=== PATIENT | male | born 1965 | race Caucasian/White ===

== ENCOUNTER 2025-01-29 08:11 | Emergency (ER) | payer MEDICAID, SELFPAY ==
[2025-01-29 08:12] VITALS: BMI 28.3
--- NOTE | 2025-01-29 08:18 | EKG_ITS ---
[facility] Test Date: 2025-01-29 Pat Name: MARK LLAMAS Department: Room: - Gender: Male [employer] Supervisor: : 1965 Requested By: Flaco Slater (BRITT) Order Number: [id number] Reading MD: Flaco Slater (BRITT) Measurements Intervals [place] Rate: 72 P: 52 MD: 170 QRS: 24 QRSD: 93 T: 53 QT: 361 QTc: 396 Interpretive Statements SINUS RHYTHM No previous ECG available for comparison /store/S0/[id number]/[id number]
--- NOTE | 2025-01-29 08:18 | XR_ITS ---
EXAMINATION: PA lateral chest 2 views TECHNIQUE: Upright PA lateral chest 2 views Date and time: January 29, 2025, 0905 hours INDICATIONS: Left-sided chest pain shortness of breath beginning 3 weeks ago. FINDINGS: Normal heart size No pneumonia or pulmonary edema Old bilateral rib fractures as well as left clavicle fracture IMPRESSION: No active disease
[2025-01-29 08:29] VITALS: BP 145/90; PULSE 75; RESP 18; TEMP 36.8; O2SAT 96
--- NOTE | 2025-01-29 08:31 | PD.EDRME ---
Rapid Medical Screening Exam RME Arrival date/time: 01/29/25 08:11 59-year-old male presents to the emergency department today for complaints of a 2-week history of chest pain Chief Complaint: Chest Pain Vital signs: Vital Signs Temperature 98.2 F 01/29/25 08:29 Pulse Rate 75 01/29/25 08:29 Respiratory Rate 18 01/29/25 08:29 Blood Pressure 145/90 H 01/29/25 08:29 Pulse Oximetry (%) 96 01/29/25 08:29 Oxygen Delivery Method Room Air 01/29/25 08:29 Vital signs reviewed by provider: Yes Exam: On exam patient hemodynamically stable does not appear ill or toxic Clinical Impression: Lab work imaging EKG ordered
[2025-01-29 08:46] LABS: Basophils # (Auto) 0.1 Thou/mm3 (0.0-0.2); Basophils % (Auto) 1 % (0-2.5); Eosinophils # (Auto) 0.2 Thou/mm3 (0.0-0.5); Eosinophils % (Auto) 2 % (0-10); Hematocrit 40.7 % (41.0-53.0); Hemoglobin 13.4 g/dL (13.5-16.0); Immature Granulocytes Auto 0.05 Thou/mm3 (0.00-0.00); Lymphocytes # (Auto) 3.6 Thou/mm3 (1.0-4.8); Lymphocytes % (Auto) 29 % (10-50); Mean Corpuscular HGB Conc 32.9 g/dl (31.0-37.0); Mean Corpuscular Hemoglobin 27.9 pg (25.0-35.0); Mean Corpuscular Volume 85 fL (80-100); Monocytes # (Auto) 0.9 Thou/mm3 (0.0-0.8); Monocytes % (Auto) 7 % (0-12); Neutrophils # (Auto) 7.4 Thou/mm3 (1.8-7.7); Neutrophils % (Auto) 60 % (37-80); Nucleated Red Blood Cell # 0.00 Thou/mm3 (0.00-0.00); Nucleated Red Blood Cell % 0 /100 WBC (0); Platelet Count 243 Thou/mm3 (140-440); RDW Standard Deviation 42.5 fL (35.1-43.9); Red Blood Count 4.81 Miln/mm3 (4.50-5.90); White Blood Count 12.2 Thou/mm3 (3.8-10.6)
[2025-01-29 08:48] LABS: Collection Type, Urine Clean Catch; Squamous Epithelial Cell,Urine 0 /hpf (0-5)
[2025-01-29 08:53] LABS: Bilirubin,Urine Negative (Negative); Blood,Urine Negative (Negative); Clarity,Urine Clear (Clear/Hazy); Color,Urine Lt-Yellow (Lt Yel-Yel); Culture Indicated,Urine Not Indicated; Glucose, Urine Negative (Negative); Ketones,Urine Negative (Negative); Leukocyte Esterase,Urine Negative (Negative); Nitrite,Urine Negative (Negative); PH,Urine 6.0 (5.0-7.0); Protein,Urine Negative (Neg - Trace); RBC,Urine 2 /hpf (0-3); Specific Gravity,Urine 1.024 (1.001-1.035); Urobilinogen,Urine Negative mg/dL (0.0-1.0); WBC,Urine 1 /hpf (0-5)
[2025-01-29 09:03] LABS: Amphetamine/Methamp Scrn,U Negative (Negative); Barbiturate Screen,Urine Negative (Negative); Benzodiazepines Screen,Urine Negative (Negative); Benzoylecgonine Screen, Ur Negative (Negative); Fentanyl Screen,Urine Negative (Negative); Opiate Screen,Urine Negative (Negative); THC Screen,Urine Negative (Negative)
[2025-01-29 09:03] LABS: INR 1.0 (0.9-1.3); Partial Thromboplastin Time 24.5 Seconds (22.0-36.0); Prothrombin Time 10.3 Seconds (9.0-12.2)
[2025-01-29 09:05] LABS: B-Type Natriuretic Peptide 70 pg/mL (0-100)
[2025-01-29 09:08] LABS: Alanine Aminotransferase 20 U/L (10-49); Albumin, Serum 4.5 gm/dL (3.5-5.0); Albumin/Globulin Ratio 1.6 (1.2-2.2); Alkaline Phosphatase 68 U/L (46-116); Anion Gap 8 (7-16); Aspartate Amino Transferase 19 U/L (0-34); BUN/Creatinine Ratio 11 Ratio (12-20); Bilirubin,Total 0.3 mg/dL (0.3-1.2); Blood Urea Nitrogen 12 mg/dL (9-23); Calcium 9.5 mg/dL (8.3-10.6); Calcium (Corrected) 9.5 mg/dL (8.5-10.1); Carbon Dioxide 25.7 mMol/L (20.0-31.0); Chloride 107 mMol/L (98-107); Creatinine (Component) 1.1 mg/dL (0.6-1.3); Estimated Creatinine Clearance 80.0 mL/min (>60); Globulin 2.8 gm/dL (2.3-3.5); Glucose 92 mg/dL (74-106); Lipase 34 U/L (12-53); Magnesium 2.0 mg/dL (1.6-2.6); Osmolality,Calculated 280 (275-295); Potassium 3.7 mMol/L (3.4-5.1); Sodium 141 mMol/L (136-145); Total Protein 7.3 gm/dL (5.7-8.2); Troponin I < 0.020 ng/mL (0.0-0.045); eGFR > 60 See Note
[2025-01-29 10:29] VITALS: BP 139/84; PULSE 81; RESP 17; TEMP 36.7; O2SAT 96
--- NOTE | 2025-01-29 12:04 | EDNOTE_ITS ---
ED Chest Pain RME/HPI General Chief Complaint: Chest Pain Stated Complaint: L-SIDED CHEST PAIN, SOB, L ABD PAIN Time Seen by Provider: 01/29/25 11:25 Arrival date/time: 01/29/25 08:11 59-year-old male patient with significant history of COPD, came in for evaluation regarding left-sided chest pain. Patient been having left- sided chest pain, associated with nonproductive cough, has been ongoing for the last 2 weeks. Pain radiates to the left upper abdomen was seen by PCP, and was started on prednisone and albuterol. Patient was worried about having a pneumonia. Denies any fever denies any other complaints no medication was taken prior to ER visit. Patient smokes cigarettes RME / HPI RME / HPI narrative: 01/29/25 08:11 59-year-old male presents to the emergency department today for complaints of a 2-week history of chest pain Exam: On exam patient hemodynamically stable does not appear ill or toxic Impression: Lab work imaging EKG ordered Related Data Previous Rx's ?Medication ?Instructions ?Recorded benzonatate 200 mg capsule 200 mg PO TID PRN cough #30 caps 01/29/25 Allergies Allergy/AdvReac Type Severity Reaction Status Date / Time ibuprofen Allergy Severe Seizure Verified 01/29/25 08:19 Opioids - Morphine Analogues Allergy Severe Seizure Verified 01/29/25 08:19 Penicillins Allergy Severe Seizure Verified 01/29/25 08:19 Review of Systems Review of Systems Narrative Review of Systems: Review of system reviewed and within normal limits except mentioned in HPI ED Exam Narrative Physical exam: VITAL SIGNS: Reviewed. GENERAL APPEARANCE: Alert and interactive, follows commands, no acute distress, HEAD AND FACE: Non-traumatic. ENT: PERRL, pink conjunctivitis, eyelid no trauma, Mucous membrane moist. NECK: Supple, nontender, no nuchal rigidity. CHEST: No tenderness, no crepitus, no paradoxical movement, no retractions. LUNGS: Clear, well ventilated, symmetric, no rales, no wheezing, no ronchi, no stridor, good breath sounds bilaterally. HEART: Regular rate, regular rhythm, no murmur, no gallops. ABDOMEN: Soft, positive bowel sounds, nondistended, no guarding, nontender, no rebound, no masses, RECTAL: Deferred. GENITAL: Deferred. NEUROLOGICAL: Gross motor function intact sensory function intact, Appropriate for age. MUSCULOSKELETAL: low back nontender, full range of motion. EXTREMITIES: Nontender, full range of motion. SKIN: Color pink, dry, no rash, no lacerations, no abrasions, no contusions. LYMPHATICS: Deferred. Course Quality Measures none Orders Category Date Time Status EKG (ED ONLY) *Do not use* NOW Care 01/29/25 08:18 Completed EKG (ED Only) Stat Exams 01/29/25 08:18 Draft XR chest 2V Stat Exams 01/29/25 08:18 Completed B-Type Natriuretic Peptide Stat Lab 01/29/25 08:30 Completed CBC Stat Lab 01/29/25 08:30 Completed Comprehensive Metabolic Panel Stat Lab 01/29/25 08:30 Completed Drug Screen,Urine Stat Lab 01/29/25 08:39 Completed Lipase Stat Lab 01/29/25 08:30 Completed Magnesium Stat Lab 01/29/25 08:30 Completed Partial Thromboplastin Time Stat Lab 01/29/25 08:30 Completed Prothrombin Time with INR Stat Lab 01/29/25 08:30 Completed Troponin I Stat Lab 01/29/25 08:30 Completed Urinalysis, C/S if Indicated Stat Lab 01/29/25 08:39 Completed Vital Signs Vital signs: Vital Signs Temperature 98.2 F 01/29/25 08:29 Pulse Rate 75 01/29/25 08:29 Respiratory Rate 18 01/29/25 08:29 Blood Pressure 145/90 H 01/29/25 08:29 Pulse Oximetry (%) 96 01/29/25 08:29 Oxygen Delivery Method Room Air 01/29/25 08:29 Chest Pain MDM Narrative MDM Narrative:: 01/29/25 08:11 59-year-old male patient with significant history of COPD, came in for evaluation regarding left-sided chest pain. Patient been having left- sided chest pain, associated with nonproductive cough, has been ongoing for the last 2 weeks. Pain radiates to the left upper abdomen was seen by PCP, and was started on prednisone and albuterol. Patient was worried about having a pneumonia. Denies any fever denies any other complaints no medication was taken prior to ER visit. Patient smokes cigarettes Patient cardiac workup today all came back unremarkable. I personally reviewed and interpreted the x-ray of this patient. There is no acute abnormalities found, no infiltrates no pneumothorax no hemothorax normal chest x-ray. Review of other structures was without significant abnormal findings also. I additionally reviewed the radiologist report and agree with the interpretation. Troponin is normal urinalysis no UTI negative for drug toxicity EKG showed normal sinus rhythm, ventricular rate of 72 bpm, no ST segment elevation depression noted. Repeat troponin is noted if patient is having chest pain for 2 weeks Stable for discharge home Patient data External records reviewed:: None Clinical information provided by:: patient Social determinants that could affect healthcare access:: none Patient has the following chronic illnesses:: History of COPD, history of chronic smoking How is presenting disease/condition affected by chronic disease/condition?: exacerbated by Evaluation data The following diagnostics were reviewed and interpreted by me:: lab results, radiology exam(s) and EKG tracing(s) Lab and/or radiology exams considered but not ordered:: None Interpretation Summary: See MDM Medications / Prescriptions Medications or Prescriptions considered but not ordered:: None Medication administrations:: none Consultations Consultation(s) initiated? (list below): No Diagnosis Chest Pain Differential Diagnosis: pneumothorax, atypical chest pain and chest pain Most likely diagnosis given after review of the tests above:: Cough, chest pain Admission Indicated Admission indicated?: not indicated Admission Request Was there a request for admission?: No Disposition Plan Disposition Plan: Discharge Discharge Attestation Discharge Attestation: The patient and all family members were given an opportunity to ask questions and understood the discharge instructions. Discharge instructions specifically effects, indications for sooner follow up or return to the emergency department, and the expected course of current diagnosis. Patient condition: Stable Discharge Plan Plan Patient Disposition: HOME (Self Care) Discharge Disposition comment: stable Prescriptions/Referrals Prescriptions/Med Rec: New benzonatate 200 mg capsule 200 mg PO TID PRN (Reason: cough) Qty: 30 0RF Referrals: No Primary/Family,Physician [Primary Care Provider] - In 1 week Problem List Clinical Impression: Chest pain, Cough Patient/Caregiver Discharge Instructions Discharge Activity: activity as tolerated Education Materials: Understanding the Pain Response Additional Instructions: Thank you for the opportunity for serving you today. You are stable for discharged . You are advised to: Follow-up with your PCP in 1 to 2 days Return to ED for worsening of symptoms Increase oral fluids Take medication as prescribed Print Language: Indonesian Stand Alone Forms: [employer] Award Info., Work/School Release, Patient Portal Info Letter PA/ACCOUNT UNDERWRITER Supervising Physician PA/ACCOUNT UNDERWRITER Supervising Physician: MD Juan Miguel
== END 2025-01-29 12:11 | disposition home or self-care (01) ==
PROVIDERS: Nurse Practitioner Primary Care; Emergency Provider Family Medicine
DX: R07.89 Other chest pain (principal); J44.9 Chronic obstructive pulmonary disease, unspecified
CPT/HCPCS: 36415; 71046; 80053; 80307; 81001; 83690; 83735; 83880; 84484; 85025; 85610; 85730; 93005; 99283

== ENCOUNTER 2025-01-31 17:47 | Emergency (ER) | payer MEDICAID, SELFPAY ==
[2025-01-31 17:49] VITALS: BMI 28.3
[2025-01-31 18:19] VITALS: BP 132/84; PULSE 90; RESP 18; TEMP 36.7; O2SAT 99
--- NOTE | 2025-01-31 18:32 | XR_ITS ---
EXAMINATION: PA lateral chest 2 views TECHNIQUE: Upright PA lateral chest 2 views Date and time: January 31, 2025, 1835 hours, comparison January 29, 2025 INDICATIONS: Chest pain radiating to the left arm beginning 3 days ago. FINDINGS: Mild prominence left ventricle No pulmonary edema No lobar pneumonia. Old healed fracture left clavicle Mild osteopenia Mild diffuse thoracic degenerative disc disease Old left-sided rib fractures IMPRESSION: No pneumonia or pulmonary edema
--- NOTE | 2025-01-31 18:32 | PD.EDRME ---
Rapid Medical Screening Exam RME Arrival date/time: 01/31/25 17:47 59M with history of CAD, CVA, and HTN, as well as drug/alcohol use presents to ED continued L-sided CP that now extends down to his hips/flank. Patient was here recently for this with unremarkable cardiac work-up. Patient states no improvement. Chief Complaint: General Adult/Misc Complain Vital signs: Vital Signs Temperature 98.1 F 01/31/25 18:19 Pulse Rate 90 01/31/25 18:19 Respiratory Rate 18 01/31/25 18:19 Blood Pressure 132/84 H 01/31/25 18:19 Pulse Oximetry (%) 99 01/31/25 18:19 Oxygen Delivery Method Room Air 01/31/25 18:19 Exam: Normal WOB. Very uncomfortable. Clinical Impression: ACS vs PE vs dissection vs kidney stone vs joint pain vs PNA
[2025-01-31 18:53] LABS: Lactate (Lactic Acid) 1.5 mMol/L (0.4-2.0)
[2025-01-31 19:14] LABS: Alanine Aminotransferase 38 U/L (10-49); Albumin, Serum 4.9 gm/dL (3.5-5.0); Albumin/Globulin Ratio 1.7 (1.2-2.2); Alkaline Phosphatase 78 U/L (46-116); Anion Gap 9 (7-16); Aspartate Amino Transferase 21 U/L (0-34); BUN/Creatinine Ratio 13 Ratio (12-20); Bilirubin,Total 0.3 mg/dL (0.3-1.2); Blood Urea Nitrogen 16 mg/dL (9-23); Calcium 10.3 mg/dL (8.3-10.6); Calcium (Corrected) 10.3 mg/dL (8.5-10.1); Carbon Dioxide 26.3 mMol/L (20.0-31.0); Chloride 103 mMol/L (98-107); Creatinine (Component) 1.2 mg/dL (0.6-1.3); Estimated Creatinine Clearance 73.3 mL/min (>60); Globulin 2.9 gm/dL (2.3-3.5); Glucose 142 mg/dL (74-106); Magnesium 2.2 mg/dL (1.6-2.6); Osmolality,Calculated 278 (275-295); Potassium 4.7 mMol/L (3.4-5.1); Sodium 138 mMol/L (136-145); Total Protein 7.8 gm/dL (5.7-8.2); Troponin I < 0.020 ng/mL (0.0-0.045); eGFR > 60 See Note
[2025-01-31 19:19] LABS: Procalcitonin 0.06 ng/ml (0.0-0.49)
[2025-01-31 19:30] LABS: Basophils # (Auto) 0.0 Thou/mm3 (0.0-0.2); Basophils % (Auto) 0 % (0-2.5); Eosinophils # (Auto) 0.0 Thou/mm3 (0.0-0.5); Eosinophils % (Auto) 0 % (0-10); Hematocrit 42.0 % (41.0-53.0); Hemoglobin 13.8 g/dL (13.5-16.0); Immature Granulocytes Auto 0.04 Thou/mm3 (0.00-0.00); Lymphocytes # (Auto) 1.2 Thou/mm3 (1.0-4.8); Lymphocytes % (Auto) 10 % (10-50); Mean Corpuscular HGB Conc 32.9 g/dl (31.0-37.0); Mean Corpuscular Hemoglobin 28.0 pg (25.0-35.0); Mean Corpuscular Volume 85 fL (80-100); Monocytes # (Auto) 0.4 Thou/mm3 (0.0-0.8); Monocytes % (Auto) 3 % (0-12); Neutrophils # (Auto) 10.8 Thou/mm3 (1.8-7.7); Neutrophils % (Auto) 87 % (37-80); Nucleated Red Blood Cell # 0.00 Thou/mm3 (0.00-0.00); Nucleated Red Blood Cell % 0 /100 WBC (0); Platelet Count 179 Thou/mm3 (140-440); RDW Standard Deviation 42.2 fL (35.1-43.9); Red Blood Count 4.92 Miln/mm3 (4.50-5.90); White Blood Count 12.5 Thou/mm3 (3.8-10.6)
--- NOTE | 2025-01-31 20:54 | PD.EDCHEST ---
ED Chest Pain RME/HPI General Chief Complaint: Chest Pain Stated Complaint: GENERAL L SIDED PAIN SEEN 2 DAYS AGO Time Seen by Provider: 01/31/25 19:46 Arrival date/time: 01/31/25 17:47 RME / HPI RME / HPI narrative: 01/31/25 17:47 59M with history of CAD, CVA, and HTN, as well as drug/alcohol use presents to ED continued L-sided CP that now extends down to his hips/flank. Patient was here recently for this with unremarkable cardiac work-up. Patient states no improvement. Dr. Lima?s Main ED Evaluation: 59 y/o male with Hx of CVA, COPD, smoking and former recreational drug user presents to ED c/o chest pain. Patient states he has had pain for 1 week. He states that he initially had right sided abdominal pain which became left-sided abdominal pain. This then became left lateral thorax pain x 1 week. Pain is described as his ribs being cracked making it painful to take deep breaths, as well as fever and painful cough. No nausea or vomiting, shortness of breath, diaphoresis. Patient was seen in ED 2 days ago. Denies any recent injury or trauma. Patient reports only being able to take Acetaminophen for pain. Exam: Normal WOB. Very uncomfortable. Impression: ACS vs PE vs dissection vs kidney stone vs joint pain vs PNA Related Data Previous Rx's ?Medication ?Instructions ?Recorded benzonatate 200 mg capsule 200 mg PO TID PRN cough #30 caps 01/29/25 acetaminophen 500 mg capsule 1,000 mg (2 x 500 mg) PO Q6H PRN 01/31/25 pain #30 caps Allergies Allergy/AdvReac Type Severity Reaction Status Date / Time ibuprofen Allergy Severe Seizure Verified 01/29/25 08:19 Opioids - Morphine Analogues Allergy Severe Seizure Verified 01/29/25 08:19 Penicillins Allergy Severe Seizure Verified 01/29/25 08:19 Review of Systems Review of Systems Systems Reviewed: All systems reviewed, normal except as documented Past Medical History Past Medical History NEUROLOGIC: Positive Cerebrovascular Accident and Amyotrophic Lateral Sclerosis (ALS/Tonja Gehrig's) CARDIAC: Positive Myocardial Infarction RESPIRATORY: Positive Chronic Obstructive Pulmonary Disease (COPD) Social History SMOKING STATUS: Current every day smoker SUBSTANCE USE: former substance user ALCOHOL: Former HOUSING: [facility] ED Exam Narrative Physical exam: GENERAL APPEARANCE: alert and oriented x 4, well-developed, well-nourished, no acute distress VITALS: All vitals were reviewed and the pulse ox is 99% on room air, which is normal according to my interpretation. HEENT: Normocephalic, atraumatic; pupils equal, round, reactive to light; EOMI; mucous membranes pink, moist; oropharynx clear NECK: Supple LUNGS: CTABL; no wheezes, no rales, no rhonchi HEART: Regular rate, regular rhythm; normal S1, S2; no murmurs CHEST: Reproducible TTP to the left lateral chest wall. ABDOMEN: non distended; normal BS; soft, no tenderness, no guarding, no rebound; no masses, no organomegaly, no hernia BACK: no CVA tenderness EXTREMITIES: atraumatic; no edema NEUROLOGIC: awake; alert and oriented x4; cranial nerves II-XII grossly intact; no focal sensory or motor deficits PSYCHIATRIC: appropriate mood and affect SKIN: warm, dry, normal color; no rashes Course Quality Measures none Orders Category Date Time Status EKG (ED ONLY) *Do not use* NOW Care 01/31/25 20:49 Completed EKG (ED Only) Stat Exams 01/31/25 20:49 Ordered XR chest 2V Stat Exams 01/31/25 18:32 Completed CBC Stat Lab 01/31/25 18:48 Completed Comprehensive Metabolic Panel Stat Lab 01/31/25 18:48 Completed Lactate (Lactic Acid) Stat Lab 01/31/25 18:48 Completed Magnesium Stat Lab 01/31/25 18:48 Completed Procalcitonin Stat Lab 01/31/25 18:48 Completed Troponin I Stat Lab 01/31/25 18:48 Completed Vital Signs Vital signs: Vital Signs Temperature 98.1 F 01/31/25 18:19 Pulse Rate 90 01/31/25 18:19 Respiratory Rate 18 01/31/25 18:19 Blood Pressure 132/84 H 01/31/25 18:19 Pulse Oximetry (%) 99 01/31/25 18:19 Oxygen Delivery Method Room Air 01/31/25 18:19 Chest Pain MDM Narrative MDM Narrative:: Patient is a 59-year-old male who presented to the emergency department complaining of reproducible left-sided chest pain. Patient states this began with abdominal pain which moved around and eventually ended up with left lateral chest wall pain. This was exquisitely tender to the touch. There were no overlying rashes. Patient denied recent trauma. No nausea, vomiting, diaphoresis, dyspnea. Patient's workup was reassuring and that no definitive discrete lesion was noted. Patient's vital signs stable and normal. Differential diagnosis included STEMI, non-STEMI, pneumothorax, pneumonia, empyema, chest wall pain, other Scribe Attestation: Jazz Rangel, am scribing for and in the presence of Dr. Lima. Provider Notation: Although this document has been carefully reviewed, there may still be some phonetic and other typographical errors. These errors are purely grammatical due to imperfections in the software program and should not be construed in any way to compromise the substance of the patient's medical care during this visit. Patient data External records reviewed:: [facility] previous records (Reviewed prior ED records from 01/29/25. Patient was seen for Chest pain.) Clinical information provided by:: patient Social determinants that could affect healthcare access:: housing ([facility]) Patient has the following chronic illnesses:: ALS, CVA, ND, Smoking, COPD How is presenting disease/condition affected by chronic disease/condition?: exacerbated by Evaluation data The following diagnostics were reviewed and interpreted by me:: lab results, radiology exam(s) and EKG tracing(s) (EKG at 20:56 shows normal sinus rhythm at 89, normal axis, no ectopy, no signs of acute ischemia, no change from 2 days ago (01/31/2025), per my interpretation.) Lab and/or radiology exams considered but not ordered:: None Interpretation Summary: RADIOLOGY Chest X-Ray: FINDINGS: Mild prominence left ventricle No pulmonary edema No lobar pneumonia. Old healed fracture left clavicle Mild osteopenia Mild diffuse thoracic degenerative disc disease Old left-sided rib fractures IMPRESSION: No pneumonia or pulmonary edema Medications / Prescriptions Medications or Prescriptions considered but not ordered:: None Medication administrations:: See above if any Consultations Consultation(s) initiated? (list below): No Diagnosis Chest Pain Differential Diagnosis: fracture of rib, pneumothorax, stable angina, unstable angina pectoris, atypical chest pain, st elevation myocardial infarction, costochondritis and chest pain Most likely diagnosis given after review of the tests above:: Atypical chest pain, Cough Admission Indicated Admission indicated?: not indicated Explain why admission is indicated or not indicated:: Patient does not meet admission criteria. Admission Request Was there a request for admission?: No Disposition Plan Disposition Plan: Discharge Discharge Attestation Discharge Attestation: The patient and all family members were given an opportunity to ask questions and understood the discharge instructions. Discharge instructions specifically effects, indications for sooner follow up or return to the emergency department, and the expected course of current diagnosis. Patient condition: Stable Discharge Plan Plan Patient Disposition: HOME (Self Care) Discharge Disposition comment: Chest pain Patient condition on transfer: Stable Prescriptions/Referrals Prescriptions/Med Rec: New acetaminophen 500 mg capsule 1,000 mg PO Q6H PRN (Reason: pain) Qty: 30 0RF No Action benzonatate 200 mg capsule 200 mg PO TID PRN (Reason: cough) Qty: 30 0RF Referrals: Christos Rubi MD [Physician, Cardiology] - In 1 week Problem List Clinical Impression: Cough, Atypical chest pain Patient/Caregiver Discharge Instructions Discharge Activity: activity as tolerated Diet Instructions: No restrictions Education Materials: ED Chest Pain, Uncertain Cause Additional Instructions: Please return to the emergency department if you have any worsening or any further medical problems and we will help you. Otherwise you should follow-up with your primary care doctor within the next several days. Apparently you are allergic to ibuprofen as well as all opiates. This leaves you with only acetaminophen to treat your pain. I have written a prescription as written for you at your pharmacy. You can take 2 tabs of the acetaminophen up to every 6 hours for pain. I given you contact information for Dr. Rubi. He is a software computer specialist on-call for the emergency department [facility]. You should call his office and make a follow-up appointment for sometime in the next several days or so. Print Language: French Stand Alone Forms: [facility] Award Info., Patient Portal Info Letter
[2025-01-31 21:21] VITALS: BP 130/86; PULSE 92; RESP 22; TEMP 36.9; O2SAT 92
== END 2025-01-31 21:26 | disposition home or self-care (01) ==
PROVIDERS: Physician Assistant; Emergency Provider Emergency Medicine
DX: R07.9 Chest pain, unspecified (principal); R05.9 Cough, unspecified; I10 Essential (primary) hypertension; I25.10 Atherosclerotic heart disease of native coronary artery without angina pectoris; J44.9 Chronic obstructive pulmonary disease, unspecified; Z87.891 Personal history of nicotine dependence
CPT/HCPCS: 36415; 71046; 80053; 83605; 83735; 84145; 84484; 85025; 93005; 99283